=== PATIENT | male | born 1955 | race Asian ===

== ENCOUNTER 2024-01-11 19:00 | Emergency (ER) | payer MEDICAID, SELFPAY ==
[2024-01-11 19:08] VITALS: BP 125/82
--- NOTE | 2024-01-11 19:28 | ED.GENMED ---
History of Present Illness
General
Chief Complaint: Skin Problem
Source: patient and ambulance crew
Exam Limitations: non verbal-adult
Time Seen by Provider: 01/11/24 19:24
Travel History
Have you had any contact with someone who has COVID-19?: No
Do you have any symptoms of coronavirus? Fever > 100 degrees, chills, cough, shortness of breath, sore throat, loss of taste or smell, muscle aches, or headache?: No
History of Present Illness
History of Present Illness:
[facility] presents [facility] ED from [facility], requesting new peripheral midline IV, in order for patient to continue to receive IV antibiotics for ongoing right foot infection. Upon arrival, patient is alert and awake, but not following commands. No
further information obtained at this time.
Past History
Past History
ED Past Medical History: Arrthythmia and Seizures
ED Past Surgical History: None
Patient has exhibited threatening behavior?: No
PSI?: No
Review of Systems
Review of Systems
Allergies reviewed?: Yes
Unable to obtain full review of systems at this time due to: non-verbal
All Other Systems: Not applicable
Phy Exam
Physical Exam
Physical Exam:
Physical Exam
General: no apparent distress, not acutely ill. afebrile
Head: nc/at. eomi
Neck: supple. no meningeal signs.
Abdomen: normal bowel sounds. not tender.
Neuro: alert and awake. nonverbal.
Skin: right foot - wrapped in dressing, without surrounding erythema/swelling
Psychiatric: well kept. interactive and cooperative
Extremities: no edema. no calf tenderness.
Course
Orders/Labs/Results
Orders:
Orders
01/11/24 19:29
Midline IV As Directed
Comment:: for iv abx
01/11/24 20:20
Vancomycin [Vancocin] 1,500 mg 0.9% Sodium Chloride [Nss] 20 ml 0.9% Sodium Chloride 250 ml [Nss] 250 ml IV NOW
Vital Signs
Initial and Last Documented VS:
Initial Vital Signs
Pulse Resp Pulse Ox
86 18 93
01/11/24 19:07 01/11/24 19:07 01/11/24 19:07
Last Documented Vital Signs
Temp Pulse Resp BP Pulse Ox
99.0 F 93 17 125/84 97
01/11/24 19:18 01/12/24 00:24 01/12/24 00:24 01/12/24 00:24 01/12/24 00:24
MDM/Problems Addressed
MDM/Problems Addressed:
Upper extremity midline placed successfully in ED. Patient given IV dose of vancomycin prior to transfer back to [facility].
*Critical Care Note
Total Time (30-74mins, 75-104mins- exclusive of procedures): Not Applicable
ED Attending Note
-
Portions of this chart may have been created with voice recognition software.� Occasional wrong word or��sound alike� substitutions may have occurred due to the inherent limitations of voice recognition software.
Discharge Plan
Departure
Patient Disposition: Custodial/SNF
Date of Disposition: 01/11/24
Time of Disposition: 21:06
Discharge Problem:
Displacement of peripheral intravenous catheter
Instructions: How to care for a midline IV catheter, Midline IV catheter insertion
Prescriptions:
No Action
acetaminophen [Tylenol] 325 mg Tablet
650 mg PO Q4H PRN (Reason: MILD PAIN, TEMP>101)
thiamine HCl (vitamin B1) 100 mg Tablet
100 mg PO DAILY
magnesium hydroxide [Milk of Magnesia] 400 mg/5 mL Suspension
30 ml PO DAILYPRN PRN (Reason: NO BM AFTER 3 DAYS)
bisacodyl 10 mg Suppository
10 mg OR DAILY PRN (Reason: NO BM 24H AFTER MOM)
folic acid 1 mg Tablet
1 mg PO DAILY
levetiracetam [Keppra] 500 mg tablet
1,500 mg PO BID Qty: 180 0RF
lacosamide [Vimpat] 200 mg tablet
200 mg PO BID Qty: 60 0RF
acetaminophen 650 mg Suppository
650 mg OR Q6H PRN (Reason: mild pain/fever)
ketoconazole 2 % Shampoo
1 applic TOPICAL MOWESA@2200
tramadol 50 mg Tablet
50 mg PO Q8H PRN (Reason: moderate to severe pain)
zinc sulfate 50 mg zinc (220 mg) Tablet
50 mg PO DAILY
calcium carbonate [Calcium 600] 600 mg calcium (1,500 mg) Tablet
600 mg PO DAILY
baclofen 10 mg Tablet
15 mg PO TID
D5 % and 0.9 % sodium chloride Parenteral Solution
1 ea IV BID
Patient Comments:
01/11/2024: use 80ml/hr
warfarin 2 mg Tablet
2 mg PO HS
Fleet Enema 19-7 gram/118 mL Enema
118 ml OR DAILY PRN (Reason: if no bm in 24hrs after Bisacodyl)
betamethasone, augmented [Diprolene (augmented)] 0.05 % Ointment
1 applic TOPICAL BID
Patient Comments:
01/11/2024: apply to face
ammonium lactate 12 % cream
1 applic TOPICAL HS
Patient Comments:
01/11/2024: apply to arms and legs
carbidopa-levodopa [Sinemet] 25-100 mg Tablet
1 tab PO TID
hydrocortisone 2.5 % Ointment
1 applic TOPICAL TID
Patient Comments:
01/11/2024: apply to neck, upper chest
oxycodone 5 mg Tablet
5 mg PO BID
Multivitamin-Minerals Tablet
1 tab PO DAILY
midodrine 10 mg Tablet
15 mg PO BID
povidone-iodine [Betadine] 10 % Solution
1 applic TOPICAL DAILY
Patient Comments:
01/11/2024: apply to R lat foot & R mallelous
povidone-iodine [Betadine] 10 % Solution
1 applic TOPICAL DAILY PRN (Reason: soilage cleanse)
Patient Comments:
01/11/2024: apply to R lat foot & R mallelous
duloxetine 20 mg Capsule,Delayed Release(Dr/Ec)
20 mg PO DAILY
lactulose 10 gram/15 mL Solution
10 g PO BID
calcipotriene-betamethasone 0.005-0.064 % Ointment
1 applic TOPICAL DAILY
Patient Comments:
01/11/2024: apply to neck, upper chest
Dakin's Solution 0.125 % Solution
1 applic TOPICAL DAILY
Patient Comments:
01/11/2024: apply to right heel
Dakin's Solution 0.125 % Solution
1 applic TOPICAL DAILY PRN (Reason: soilage cleanse)
Patient Comments:
01/11/2024: apply to right heel
valproic acid (as sodium salt) 250 mg/5 mL (5 mL) Solution
1,000 mg PO BID
cholecalciferol (vitamin D3) 1,250 mcg (50,000 unit) Tablet
1,250 mcg PO TU
morphine concentrate 20 mg/mL Syringe
5 mg PO Q4H PRN (Reason: moderate pain/dyspnea)
vancomycin 100 gram Recon Soln
1,500 mg IV BID
lorazepam 1 mg/0.5 mL Syringe
1 mg PO Q4H PRN (Reason: restlessness/anxiety)
Referrals:
Iona Cristobal CRNP [Family Provider] -
Activity Restrictions/Additional Instructions:
As discussed, you are being discharged back to [facility] for continual evaluation and treatment.
Interventions
Interventions:
*Risk Screen - Suicide Last Done: 01/11/24 21:00
*General Assessment Last Done: 01/11/24 21:00
*Neglect/Abuse Screening Last Done: 01/11/24 21:00
ED- Fall Risk Assessment Last Done: 01/11/24 21:00
*ED COVID-19 Vaccine History Last Done: 01/12/24 00:23
*Nursing Disposition Last Done: 01/12/24 00:24
ED-Skin Assessment Last Done: 01/11/24 23:30
Discharge Date and Time
Discharge Date/Time: 01/12/24 00:15
Print Language: UPPER SORBIAN
[2024-01-11] MEDS: VANCOCIN 300 ML IV (20:32)
[2024-01-11] MEDS: VANCOCIN 300 MG IV (20:32)
[2024-01-11 21:16] VITALS: BP 97/82
[2024-01-11 22:10] VITALS: BP 143/88
[2024-01-11 23:00] VITALS: BP 125/84
--- NOTE | 2024-01-11 23:14 | VATNOTE ---
[facility] R ML. DRSG COMLETELY NON-OCCLUSIVE, NO CAP AND PARTIALLY DISLODGED. REMOVED ML AND NEW ML INSERTED DOCUMETNED TO COMPLETE ORDERED REGIME OF ABX THERAPY AT SNF FACILITY. PCN AND AWARE OF INTERVENTION AND
OUTCOME.
[2024-01-12 00:24] VITALS: BP 125/84
== END 2024-01-12 00:15 ==
LOC: EMR 19:00
PROVIDERS: EMERGENCY PHYSICIAN Emergency Medicine; FAMILY PHYSICIAN Nurse Practitioner Primary Care
DX: T82.524A Displacement of infusion catheter, initial encounter (principal); Y83.8 Other surgical procedures as the cause of abnormal reaction of the patient, or of later complication, without mention of misadventure at the time of the procedure; R56.9 Unspecified convulsions; Z79.01 Long term (current) use of anticoagulants
CPT/HCPCS: 99284; 96365